=== PATIENT | male | born 1970 | race Two or more races ===

== ENCOUNTER 2017-07-28 12:36 | Emergency (ER) | payer SELFPAY ==
[~2017-07-28] VITALS: Ht 170.2 cm; Wt 83.9 kg
[2017-07-28 12:50] VITALS: BP 159/99
[2017-07-28] MEDS ORDERED: NKM (12:58)
[2017-07-28] MEDS ORDERED: Tetanus/Diptheria/Pertussis Vaccine 0.5ml Syr IM ONE (13:15)
[2017-07-28] MEDS ORDERED: Ketorolac 30mg Inj IM ONE (13:15)
--- NOTE | 2017-07-28 13:17 | Emergency Room Report ---
History of Present Illness General Chief Complaint: Laceration Source: Patient Present Illness HPI 46 yo male patient presents to ER with laceration on left hand. Patient reports was at home and cut hand on saw 1 hour ago. Reports right hand dominate. Reports bleeding from hand. Reports hand pain. Denies medication for pain. Does not know tetanus status. Denies fever, chest pain, SOB. Denies loss of sensation or ROM of hand. Allergies: Coded Allergies: No Known Allergies (Unverified , 07/28/17) Patient History Past Medical History: see triage record Reviewed Nursing Documentation: PMH: Agreed, PSxH: Agreed Nursing Documentation-PMH Past Medical History: No Stated History Review of Systems All Other Systems: negative except mentioned in HPI Physical Exam Vital Signs Date Time Temp Pulse Resp B/P (MAP) Pulse Ox O2 Delivery O2 Flow Rate FiO2 07/28/17 12:50 98.9 100 18 159/99 96 Room Air 99.0 Sp02 EP Interpretation: reviewed, normal General Appearance: well appearing, no apparent distress, alert, GCS 15 Head: normocephalic, atraumatic Eyes: bilateral eye normal inspection, bilateral eye PERRL ENT: hearing grossly normal, normal pharynx, no angioedema, normal voice, uvula midline, moist mucus membranes Neck: full range of motion Respiratory: lungs clear, normal breath sounds, no rhonchi, no respiratory distress, no accessory muscle use, no wheezing, speaking full sentences Cardiovascular #1: regular rate, rhythm, no edema Cardiovascular #2: 2+ radial (R), 2+ radial (L) Musculoskeletal: back normal, digits/nails normal, gait/station normal, normal range of motion - hand, digits, PIP, DIP joints, non-tender, other - NVI, sensation intact to light touch. Neurologic: alert, oriented x3, responsive, motor strength/tone normal, sensory intact Psychiatric: mood/affect normal Skin: no rash, laceration - 2 cm superifical linear laceration on left dorsum of hand betwee thumb and index finger, bleeding, no tendon expsosure Lymphatic: no adenopathy Procedures Laceration/Wound Repair Laceration/Wound Repair : Consent: Verbal Wound Location: upper extremity - hand left Wound's Depth, Shape: superficial Wound Length (cm): 2 Wound Explored: contaminated Irrigated w/ Saline (ccs): 10 Betadine Prep?: Yes Anesthesia: 1% Lidocaine Volume Anesthetic (ccs): 2 Wound Repaired With: sutures Suture Size/Type: 5:0, proline Number of Sutures: 3 Layer Closure?: No Sterile Dressing Applied?: Yes Splint Applied?: No Sling Applied?: No Patient Tolerated: Well Complications: None Medical Decision Making PA Attestation Dr. Reese is my supervising Physician whom patient management has been discussed with. Diagnostic Impression: Primary Impression: Laceration ER Course Pt presents to ED c/o laceration on left hand. DDX considered but are not limited to laceration, abrasion, contusion, cellulitis. VITAL SIGNS are WNL, patient is afebrile PE full ROM of hand, NVI, does not require imaging at this time. Laceration superficial, no surrounding erythema, edema, or signs of infection. Ordered Tdap, lidocaine, bacitracin and pain medication. ED INTERVENTIONS: Wound was cleaned and irrigated using normal saline. Local block using Lidocaine 1%. Laceration repaired. 3 sutures placed. Wound cleaned and covered using sterile dressing and Bacitracin. Will provide patient with abx to prevent infection. Patient reports feeling better following administration of pain medication. Patient reports understanding and agreement to treatment plan. Discuss with patient use of splint to prevent tear of sutures. Patient states he would like splint to keep hand immobilized while recovering due to concern over possible tearing sutures. Dr. Reese saw patient and agree with assessment, treatment and plan. DISCHARGE: Rx provided for Bactrim to cover for MRSA. Rx provided for Keflex Rx provided to Tylenol At this time pt is stable for d/c to home. Patient resting comfortably, in no acute distress, nontoxic appearing, talking on phone and smiling. Will provide with patient care instructions and any necessary prescriptions. Patient to take medication as instructed. Care plan and follow-up instructions provided. Work note provided to patient. Patient questions asked and answered. Patient instructed to follow-up with primary care provider in 2-3 days for wound check and 7-10 days for removal of sutures. Patient instructed to followup with PCP to discuss further treatment plan and ability to go to work, ER precautions given. Patient instructed to return to ER immediately for any new or worsening of symptoms. Last Vital Signs Date Time Temp Pulse Resp B/P (MAP) Pulse Ox O2 Delivery O2 Flow Rate FiO2 07/28/17 12:50 18 159/99 96 Room Air 3/8/18 12:50 98.9 100 99.0 Disposition: HOME, SELF-CARE Condition: Stable Scripts Trimethoprim/Sulfamethoxazole 160/800* (BACTRIM DS TABLET*) 1 Each Tablet 1 TAB ORAL TWICE A DAY for 7 Days, #14 TAB Prov: Taco Garcia 07/28/17 Cephalexin* (KEFLEX*) 500 Mg Capsule 500 MG ORAL EVERY 12 HOURS, #14 CAP 0 Refills Prov: Taco Garcia 07/28/17 Acetaminophen* (TYLENOL EXTRA STRENGTH*) 500 Mg Tablet 500 MG ORAL Q8H Y for Prn Headache/Temp > 101, #30 TAB 0 Refills Prov: Taco Garcia 07/28/17 Patient Instructions: Laceration Care, Adult Additional Instructions: Followup with primary care provider in 2-3 days for wound check and 7-10 days for suture removal. Take medications as directed. Patient questions asked and answered. ER precautions given, patient instructed to return to ER immediately for any new or worsening of symptoms. Taco Garcia Jul 28, 2017 13:17
[2017-07-28] MEDS ORDERED: Lidocaine 1% Plain 30 ml INJ ONE (14:00)
[2017-07-28] MEDS ORDERED: CEPHALEXIN500 MG ORAL (14:27)
[2017-07-28] MEDS ORDERED: BACTRIM DS TAB1 EAC1 ORAL (14:27)
[2017-07-28] MEDS ORDERED: TYLENOL EXTRA500 MG ORAL (14:27)
[2017-07-28] MEDS ORDERED: Bacitracin Oint UD TOPIC ONE (14:30)
[2017-07-28 15:54] VITALS: BP 138/83
== END 2017-07-28 15:54 | disposition home or self-care (01) ==
LOC: EMR 13:05
DX: S61.412A Laceration without foreign body of left hand, initial encounter (principal); W27.0XXA Contact with workbench tool, initial encounter; Y92.9 Unspecified place or not applicable; Z23 Encounter for immunization
CPT/HCPCS: 12001; 90471; 90715; 96372; 99283; J1885; J2001

== ENCOUNTER 2017-07-30 13:20 | Emergency (ER) | payer SELFPAY ==
[~2017-07-30] VITALS: Ht 170.2 cm; Wt 83.9 kg
[~2017-07-30 13:20] MED LIST: BACTRIM DS TAB1 EAC1 ORAL; CEPHALEXIN500 MG ORAL; NKM; TYLENOL EXTRA500 MG ORAL
--- NOTE | 2017-07-30 13:36 | Emergency Room Report ---
History of Present Illness General Chief Complaint: Wound Recheck/Suture Removal Source: Patient Present Illness HPI 46 yo male patient presents to ER for wound check. Patient was seen in ER 2 days ago for laceration repair. Patient reports does not have primary care provider, wanted to make sure his hand was healing well. Patient reports taking abx as instructed. Reports improvement of pain symptoms. Patient denies fever, rash, nausea, vomiting. Allergies: Coded Allergies: No Known Allergies (Unverified , 07/28/17) Patient History Past Medical History: see triage record Reviewed Nursing Documentation: PMH: Agreed, PSxH: Agreed Nursing Documentation-PMH Past Medical History: No Stated History Review of Systems All Other Systems: negative except mentioned in HPI Physical Exam Vital Signs Date Time Temp Pulse Resp B/P (MAP) Pulse Ox O2 Delivery O2 Flow Rate FiO2 07/30/17 13:25 98.4 91 18 127/77 94 Room Air 98.4 Sp02 EP Interpretation: reviewed, normal General Appearance: well appearing, no apparent distress, alert, GCS 15 Head: normocephalic, atraumatic Eyes: bilateral eye normal inspection, bilateral eye PERRL ENT: hearing grossly normal, normal pharynx, no angioedema, normal voice, uvula midline, moist mucus membranes Neck: full range of motion Respiratory: lungs clear, normal breath sounds, no rhonchi, no respiratory distress, no accessory muscle use, no wheezing, speaking full sentences Cardiovascular #1: regular rate, rhythm Cardiovascular #2: 2+ radial (R), 2+ radial (L) Musculoskeletal: back normal, digits/nails normal, gait/station normal, normal range of motion, non-tender Neurologic: alert, oriented x3, responsive, motor strength/tone normal, sensory intact Psychiatric: mood/affect normal Skin: no rash, laceration - 2 cm healing laceration, no open wound, no drainage , no surrounding erythema, no TTP, no signs of infection Lymphatic: no adenopathy Medical Decision Making PA Attestation Dr. Dinero is my supervising Physician whom patient management has been discussed with. Diagnostic Impression: Primary Impression: Encounter for wound re-check ER Course Pt. presents to the ED requesting wound check of left hand. Ddx considered but are not limited to cellulitis, abscess, carbuncle, folliculitis, laceration, wound check. Vital signs: are WNL, pt. is afebrile ORDERS: none required at this time. ED INTERVENTIONS: none required at this time. Wound has no signs of infection., no erythema, edema, TTP, sensation is intact to light touch. Patient is resting comfortably, in no acute distress, non-toxic appearing. DISCHARGE: Patient instructed to continue with medications per initial ER visit. At this time pt. is stable for d/c to home. Patient resting comfortably, in no acute distress, nontoxic appearing. Patient instructed to sign up for insurance to establish primary care. Will provide printed patient care instructions and any necessary prescriptions. Care plan and follow up instructions have been discussed with the patient prior to discharge. Patient instructed to follow-up with primary care provider for further treatment and referral. Patient questions asked and answered. ER precautions given. Patient instructed to return to ER immediately for any new or worsening of symptoms including but not limited to fever, worsening of pain symptoms. Last Vital Signs Date Time Temp Pulse Resp B/P (MAP) Pulse Ox O2 Delivery O2 Flow Rate FiO2 07/30/17 13:25 98.4 91 18 127/77 94 Room Air 98.4 Disposition: HOME, SELF-CARE Condition: Stable - ERASED Patient Instructions: Wound Check Additional Instructions: Patient instructed to followup with insurance and establish primary care provider. Patient instructed to return to ER in one week for wound check and suture removal. Patient questions asked and answered. Take medications as previously instructed. ER precautions provided. Patient instructed to return to ER for new or worsening of symptoms. Taco Garcia Jul 30, 2017 13:36
[2017-07-30 13:40] VITALS: BP 127/77
[2017-07-30 14:18] VITALS: BP 127/77
== END 2017-07-30 14:21 | disposition home or self-care (01) ==
LOC: EMR 13:36
DX: Z48.02 Encounter for removal of sutures (principal)
CPT/HCPCS: 99281

== ENCOUNTER 2017-08-06 15:01 | Emergency (ER) | payer SELFPAY ==
[~2017-08-06] VITALS: Ht 170.2 cm; Wt 83.9 kg
[2017-08-06] MEDS ORDERED: BACITRACIN-P28.35 GM TP (15:20)
--- NOTE | 2017-08-06 15:20 | Emergency Room Report ---
History of Present Illness General Chief Complaint: Wound Recheck/Suture Removal Source: Patient Present Illness HPI Pt. presents to the ED c/o Left hand laceration that need to be removed s/p wound closure 10 days ago. Pt. sustained laceration while cutting a piece of metal. He has finished a course of oral antibiotics. He reports some mild 4/10 in severity tenderness. denies discharge, bleeding, or erythema. no fevers or chills. UTD with vaccinations. Allergies: Coded Allergies: No Known Allergies (Unverified , 07/28/17) Patient History Past Medical History: see triage record Past Surgical History: none Pertinent Family History: none Immunizations: UTD Reviewed Nursing Documentation: PMH: Agreed, PSxH: Agreed Nursing Documentation-PMH Past Medical History: No Stated History Review of Systems All Other Systems: negative except mentioned in HPI Physical Exam Vital Signs Date Time Temp Pulse Resp B/P (MAP) Pulse Ox O2 Delivery O2 Flow Rate FiO2 08/06/17 15:05 98.0 84 16 124/78 96 Room Air 98.1 Sp02 EP Interpretation: reviewed, normal General Appearance: no apparent distress, alert, GCS 15, non-toxic Head: normocephalic, atraumatic ENT: hearing grossly normal, normal voice Neck: full range of motion Respiratory: lungs clear, normal breath sounds, speaking full sentences Cardiovascular #1: regular rate, rhythm, normal capillary refill Musculoskeletal: back normal, gait/station normal, normal range of motion, non- tender Neurologic: alert, oriented x3, responsive, motor strength/tone normal, sensory intact, speech normal, grossly normal Psychiatric: judgement/insight normal Skin: normal color, no rash, warm/dry, well hydrated, wd healing/no infection noted - laceration of the dorsal Left hand with [address] Medical Decision Making PA Attestation Dr. Brenner is my supervising Physician whom patient management has been discussed with. Diagnostic Impression: Primary Impression: Encounter for removal of sutures ER Course Pt. presents to the ED c/o Left hand laceration that need to be removed s/p wound closure 10 days ago. Pt. sustained laceration while cutting a piece of metal. He has finished a course of oral antibiotics. He reports some mild 4/10 in severity tenderness. denies discharge, bleeding, or erythema. no fevers or chills. UTD with vaccinations. Ddx considered but are not limited to laceration, tendon injury, cellulitis, dehiscence. Vital signs: are WNL, pt. is afebrile H&PE are most consistent with: healed laceration of the dorsal Left hand with [address] ORDERS: none required at this time, the diagnosis is clinical ED INTERVENTIONS: - 3 Sutures removed. DISCHARGE: At this time pt. is stable for d/c to home. Will provide printed patient care instructions, and any necessary prescriptions. Care plan and follow up instructions have been discussed with the patient prior to discharge. Last Vital Signs Date Time Temp Pulse Resp B/P (MAP) Pulse Ox O2 Delivery O2 Flow Rate FiO2 08/06/17 15:05 98.0 84 16 124/78 96 Room Air 98.1 Disposition: HOME, SELF-CARE Condition: Stable Scripts Bacitracin/Polymyxin B Sulfate (BACITRACIN-POLYMYXIN OINTMENT) 28.35 Gm Oint...g. 1 APPLIC TP BID, #28.3 GM Prov: Twila Ndiaye 08/06/17 Patient Instructions: Suture Removal, Care After Additional Instructions: Follow up with a Primary Care Provider in 3-5 days, even if your symptoms have resolved. --Please review list of primary care clinics, if you do not already have a primary care provider Return sooner to ED if new symptoms occur, or current symptoms become worse. - Please note that this Emergency Department Report was dictated using [employer] adjuster technology software, occasionally this can lead to erroneous entry secondary to interpretation by the dictation equipment. Twila Ndiaye Aug 06, 2017 15:20
[2017-08-06 15:26] VITALS: BP 118/70
== END 2017-08-06 15:27 | disposition home or self-care (01) ==
LOC: EMR 15:15
DX: S61.412D Laceration without foreign body of left hand, subsequent encounter (principal)
CPT/HCPCS: 99283